=== PATIENT | female | born 1955 | race Caucasian/White ===

== ENCOUNTER 2022-07-22 06:27 | Day surgery (SDC) | payer MEDICARE ==
[2022-07-22] MEDS ORDERED: Lactated Ringers 1,000 ML IV SCH (07:00)
[2022-07-22] MEDS ORDERED: DIPRIVAN 200 MG/20 ML IV ONE (07:21)
[2022-07-22] MEDS ORDERED: Xylocaine-Mpf 2% 5 Ml Vial ONE (07:21)
--- NOTE | 2022-07-22 08:55 | OP ---
SURGERY DATE/TIME: 07/22/2022 0804 PREOPERATIVE DIAGNOSIS: Screening colonoscopy. POSTOPERATIVE DIAGNOSIS: Normal colon. PROCEDURE: Colonoscopy. SURGEON: Ronan Arreaga M.D. ANESTHESIA: MAC by José Manuel Pappas CRNA. ESTIMATED BLOOD LOSS: None. SPECIMENS: None. DESCRIPTION OF PROCEDURE: After informed written consent was obtained, the patient was taken to the endoscopy suite. She was placed in left lateral decubitus position and anesthesia was titrated to desired level of consciousness. Digital rectal exam showed normal sphincter tone and no internal lesions. The scope was inserted into the rectum and sequentially the entire colonic mucosa was traversed. The level of cecum was reached and verified with direct visualization of the ileocecal valve. Upon withdrawal careful mucosal inspection revealed no gross abnormalities. Retroflexion was performed prior to withdrawal and was within normal limits. The scope was removed. The patient was transferred to the recovery room in good condition.
[2022-07-22 09:34] VITALS: O2SAT 96
[2022-07-22 09:38] VITALS: BP 170/84; PULSE 68
== END 2022-07-22 09:35 | disposition home or self-care (01) ==
LOC: SDC 06:27
PROVIDERS: ATTEND Family Medicine
DX: Z12.11 Encounter for screening for malignant neoplasm of colon (principal)
CPT/HCPCS: 00812; G0121; J2704